=== PATIENT | female | born 1935 | race Asian ===

== ENCOUNTER → 2016-07-09 | Outpatient (CLI) | payer OTHER | LOC: CIMAGING 16:27 | PROVIDERS: ATTEND Family Medicine | DX: R06.00 Dyspnea, unspecified (principal); I51.7 Cardiomegaly | CPT/HCPCS: 71020-PO ==

== ENCOUNTER → 2016-07-31 | Outpatient (CLI) | payer OTHER | LOC: FCPNEURO 22:49 | PROVIDERS: ATTEND Internal Medicine Sleep Medicine | DX: G47.33 Obstructive sleep apnea (adult) (pediatric) (principal); G47.61 Periodic limb movement disorder ==

== ENCOUNTER → 2016-08-21 | Outpatient (CLI) | payer OTHER | LOC: CIMAGING 07:16 | PROVIDERS: ATTEND Family Medicine | DX: R14.0 Abdominal distension (gaseous) (principal); N28.1 Cyst of kidney, acquired; E04.9 Nontoxic goiter, unspecified; I70.0 Atherosclerosis of aorta; E78.5 Hyperlipidemia, unspecified | CPT/HCPCS: 76700-PO; 76856-PO; 93880-PO ==

== ENCOUNTER 2016-12-27 18:53 | Emergency (ER) | payer OTHER ==
--- NOTE | 2016-12-27 18:53 | EDPHY ---
H & P HPI/ROS: CHIEF COMPLAINT: "Shaking episode" HISTORY OF PRESENT ILLNESS: This patient is an 81 year old female with Alzheimer's dementia arriving via EMS from [facility] following a witnessed episode of shaking reportedly lasting from about 18:00 to 18:30, ending 25 minutes prior to arrival. This episode was witnessed by her dining partners, who reported to EMS that the patient never lost consciousness during this time. Her dining partners alerted staff, who activated EMS. Per EMS report, the patient states she has had similar episodes before, but they are concerned she is not a reliable historian. Vitals were stable in transport. Patient was hypertensive at 182/88. BGL 138. IV established. [place] stroke scale conducted by EMS was negative. The patient's daughter is en route here, and should be able to provide further information regarding the patient's condition. HPI obtained primarily through EMS report. REVIEW OF SYSTEMS: Patient unable to reliably provide full ROS. Her daughter tells me that she has not been ill recently. Past medical history: 1. Essential thrombocytosis (Followed by Dr. English) 2. Restless Leg Syndrome 3. Hypertension 4. Coronary atherosclerosis 5. Hyperthyroidism 6. Depression and Anxiety 7. Hearing loss - wears hearing aide in left ear. Medications: HCTZ, Hydroxyurea, Escitalopram, Brimonidine, Folic acid, ASA 81mg , Ubiquinol, Ropinirole Past surgical history: Noncontributory Family history: Noncontributory Social history: Lives at [facility]. Son and daughter at bedside. PCP Dr. Guy. Has never used tobacco products. General Appearance: Alert. Vital signs reviewed. BP 156/76 Eyes: Pupils equal and round, no conjunctival injection, no discharge. Anicteric. ENT, Mouth: Mucous membranes are moist, no oropharyngeal erythema or edema. Neck: No lymphadenopathy, supple. Respiratory: Tachypneic. Lungs are clear to auscultation; no wheezes, rales, or rhonchi. Cardiovascular: Regular rate and rhythm; no murmur, rub, or gallop. Gastrointestinal: Abdomen is soft and nontender, no masses or organomegaly, bowel sounds normal. Skin: Warm and dry, no rashes on exposed skin, normal color. Back: Nontender to palpation over the thoracolumbar spine. No CVAT. Extremities: No lower extremity edema, no calf tenderness or swelling. Neurological: Alert and oriented. Moving all four extremities easily and equally. PERRL. EOMI. Facial expressions symmetric. Tongue midline. 4+/5 motor strength throughout. Sensation intact to light touch. No tremor, fasciculations, abnormal motor activity noted. Psychiatric: Normal affect. Constitutional: Initial Vital Signs Temperature (C) 37 C 12/27/16 18:53 Heart Rate 86 12/27/16 18:53 Respiratory Rate 18 12/27/16 18:53 Blood Pressure 156/76 H 12/27/16 18:53 O2 Sat (%) 94 12/27/16 18:53 O2 Delivery Mode Room Air Allergies/Adverse Reactions: alendronate sodium [From Fosamax] Allergy (Intermediate, Verified 11/27/15 09:06 ) bupropion HCl [From Wellbutrin] Allergy (Intermediate, Verified 11/27/15 09:06) duloxetine HCl [From Cymbalta] Allergy (Intermediate, Verified 11/27/15 09:06) hydrocodone [Hydrocodone] Allergy (Intermediate, Verified 11/27/15 09:06) alcohol Allergy (Verified 11/27/15 09:06) ethanolamine [Ethanolamine] Allergy (Verified 11/27/15 09:06) Home Medications: Medication Instructions Recorded Aspirin 12/27/16 Brimonidine 0.15% 12/27/16 Escitalopram Oxalate 12/27/16 FOLIC ACID 12/27/16 Hydrochlorothiazide 12/27/16 Hydroxyurea 12/27/16 Latanoprost 0.005% 12/27/16 Ropinirole HCl 12/27/16 Medical Decision Making - Diagnostics EKG Interpretation: The 12 lead EKG was interpreted by myself. See hard copy and/or "tracemaster" electronic copy for interpretation. Sinus rhythm, rate 87. Imaging: I viewed and interpreted images myself ED Course/Re-evaluation: 18:54 Met EMS crews on arrival, received report at bedside. 19:13 The patient's family has arrived, her daughter and son. The patient's son states the nurse apprenticeship consultant says she started trembling and complained of malaise. The patient states she was having lunch in the dining room, but is unable to state how she was feeling at that time. She remember her legs were shaking. She denies any associated pain. Right now she states she feels fine. She appears worried. She endorses some anxiety earlier today. She denies recent falls or other trauma, or any recent illness. She denies chest pain. She had a sensation of difficulty breathing earlier today, but this is now resolved. She denies nausea, abdominal pain, diarrhea, constipation, urinary complaints, or other associated symptoms. The patient is currently tachypneic. Her blood pressure is elevated at 175/68. The patient feels warm to the touch but is afebrile at 37.2 degrees. Physical exam is otherwise unremarkable. Her daughter at bedside states her hypertension is generally well controlled, with systolic BP around 115. Plan for labs including CBC, BMP, UA. Plan for EKG. EKG shows sinus rhythm. Labs unremarkable. No evidence of systemic infection or acute electrolyte imbalance 20:03 Reassessed patient. She states she is feeling much better. Her most recent medication is for her thrombocytopenia, Hydroxyurea. I do not suspect this would be causing her tachypnea. She denies any chest pain. Discussed laboratory results. Discussed the possibility of pulmonary embolism. The patient would like to avoid a CT scan if possible. Plan for chest x-ray and d- dimer. Given her thrombocytosis, I am not sure whether her baseline d-dimer level is within normal limits. She is not anticoagulated, and her son and daughter at bedside state she had done poorly with blood thinners in the past. It is not clear to me exactly what happened--doesn't sound like a focal motor seizure, but this is a possibility. This was not a grand mal seizure based on the description provided to me. She has not had a tremor while in the ED and has no history of benign tremor. 21:30 Chest x-ray unremarkable, D-dimer negative, platelets WNL. WBC 9.11 with 92 % neutrophils (she usually has elevated neutrophils, but this is higher than previous). UA shows trace LE and WBCs--however, she has no urinary symptoms, no fever. I am not treating for UTI at this point and do not feel that this UA warrants treatment. I do not think that her presentation (shaking) was a chill. Of course, I was not present and the description of the event is thirdhand and vague. Discussed results with patient and family. She continues to feel better, and is comfortable being discharged back to her assisted living facility. Her family is comfortable with this as well. She will follow up with her primary care physician this week for continued evaluation. She is aware that although I did not find any obvious cause of her episode, I did not see evidence of any life-threatening conditions at this time. Return precautions discussed. She and her family are comfortable with this plan. - Data Points Laboratory Results: Laboratory Results 12/27/16 19:00 12/27/16 19:00 Departure - Departure Disposition: Home, Routine, Self-Care Clinical Impression: Tachypnea Condition: Good Instructions: Hyperventilation (ED) Additional Instructions: 1. Follow up with Dr. Guy in the next 2-3 days. Call tomorrow for an appointment. 2. We do not know what caused your episode at mealtime today, but did not find anything dangerous or life-threatening on our evaluation this evening. 3. Return to the emergency department if you develop chest pain, shortness of breath, dizziness, weakness, or fainting or other worsening of condition. Referrals: Prema Guy [Primary Care Provider] - As per Instructions Report Scribed for: Rosie Ackerman Report Scribed by: Alesia Sepulveda Date of Report: 12/27/16 Time of Report: 19:03 Physician Review and Approval Statement: 12/27/16 18:53 Portions of this note were transcribed by the special forces medical sergeant. I, Dr. Rosie Ackerman, personally performed the history, physical exam, and medical decision- making; and confirmed the accuracy of the information in the transcribed note.
[2016-12-27 19:04] LABS: % IMMATURE GRANULYOCYTES 0.2 % (0.0-1.1); ABSOLUTE IMMATURE GRANULOCYTES 0.02 10^3/uL (0.00-0.10); ADD DIFF? NO; ADD MORPH? NO; ADD SCAN? NO; ATYPICAL LYMPHOCYTE FLAG 0 (0-99); FRAGMENT RBC FLAG 0 (0-99); HEMATOCRIT 43.5 % (38.0-47.0); HEMOGLOBIN 14.3 g/dL (12.6-16.3); LEFT SHIFT FLG 20 (0-99); LIPEMIA HEMOLYSIS FLAG 80 (0-99); MEAN CELL HEMOGLOBIN 31.6 pg (27.9-34.1); MEAN CELL HEMOGLOBIN CONCENTR. 32.9 g/dL (32.4-36.7); MEAN CELL VOLUME 96.2 fL (81.5-99.8); PLATELET CLUMPS FLAG 0 (0-99); PLATELET COUNT 224 10^3/uL (150-400); RED BLOOD CELL COUNT 4.52 10^6/uL (4.18-5.33); RED CELL DISTRIBUTION WIDTH 18.8 % (11.5-15.2)
[2016-12-27 19:07] VITALS: TEMP 98.6
[2016-12-27 19:14] LABS: ANION GAP 11 mEq/L (8-16); CALCIUM 9.4 mg/dL (8.5-10.4); CARBON DIOXIDE 28 mEq/l (22-31); CHLORIDE 97 mEq/L (97-110); CREATININE 0.8 mg/dL (0.6-1.0); GLOMERULAR FILTRATION RATE > 60; GLUCOSE 125 mg/dL (70-100); POTASSIUM 3.6 mEq/L (3.5-5.2); SODIUM 136 mEq/L (134-144)
--- NOTE | 2016-12-27 19:27 | CPEKG ---
Heart Rate: 87 RR Interval: 690 P-R Interval: 148 QRSD Interval: 80 QT Interval: 376 QTC Interval: 453 P Vinton: -5 QRS [place]inton: 34 T Wave Vinton: 18 EKG Severity - NORMAL ECG - EKG Impression: SINUS RHYTHM Electronically Signed By: Rosie Ackerman 28-Dec-2016 00:01:57
[2016-12-27 20:22] LABS: COLOR PALE YELLOW; LEUKOCYTE ESTERASE,URINE TRACE (NEGATIVE); NITRITE,URINE NEGATIVE (NEGATIVE)
[2016-12-27 20:24] LABS: WBC,URINE 15-25 /hpf (0-3)
[2016-12-27 22:15] VITALS: BP 176/68; PULSE 81; RESP 20; O2SAT 94
== END 2016-12-27 22:16 | disposition home or self-care (01) ==
LOC: EDUNIT#
DX: R06.82 Tachypnea, not elsewhere classified (principal); I10 Essential (primary) hypertension; I25.10 Atherosclerotic heart disease of native coronary artery without angina pectoris; Z79.82 Long term (current) use of aspirin

== ENCOUNTER 2017-03-27 11:25 | Inpatient (IN) | payer OTHER ==
--- NOTE | 2017-03-27 12:10 | CPEKG ---
Heart Rate: 78 RR Interval: 769 P-R Interval: 148 QRSD Interval: 78 QT Interval: 420 QTC Interval: 479 P Questa: -11 QRS [place]esta: 52 T Wave [place]: 26 EKG Severity - NORMAL ECG - EKG Impression: SINUS RHYTHM Electronically Signed By: Adolfo Loomis 29-Mar-2017 21:36:14
[2017-03-27 12:24] LABS: % IMMATURE GRANULYOCYTES 0.3 % (0.0-1.1); ABSOLUTE IMMATURE GRANULOCYTES 0.02 10^3/uL (0.00-0.10); ADD DIFF? NO; ADD MORPH? NO; ADD SCAN? NO; ATYPICAL LYMPHOCYTE FLAG 0 (0-99); FRAGMENT RBC FLAG 0 (0-99); HEMATOCRIT 36.9 % (38.0-47.0); HEMOGLOBIN 12.6 g/dL (12.6-16.3); LEFT SHIFT FLG 0 (0-99); LIPEMIA HEMOLYSIS FLAG 90 (0-99); MEAN CELL HEMOGLOBIN CONCENTR. 34.1 g/dL (32.4-36.7); MEAN CELL VOLUME 108.2 fL (81.5-99.8); PLATELET CLUMPS FLAG 0 (0-99); PLATELET COUNT 183 10^3/uL (150-400); RED BLOOD CELL COUNT 3.41 10^6/uL (4.18-5.33); RED CELL DISTRIBUTION WIDTH 13.6 % (11.5-15.2)
[2017-03-27 12:37] LABS: INR 1.01 (0.83-1.16); PROTIME(PATIENT) 13.2 SEC (12.0-15.0)
--- NOTE | 2017-03-27 12:38 | EDPHY ---
H & P Stated Complaint: Fell at home. Altered Mental Status Time Seen by Provider: 03/27/17 11:30 HPI/ROS: CHIEF COMPLAINT: Multiple falls HISTORY OF PRESENT ILLNESS: This is an 81-year-old female with history of Alzheimer's disease as well as coronary artery disease status post 2 stents. She presents today with her family. Patient has a history of falling 6 days ago when getting out of bed in the morning. Patient described as a mechanical fall. She fell this morning, which she reports this tripping on a rug. Patient denies loss of consciousness during either fall. On Wednesday, she fell to her right side and struck her right jaw where she has ecchymosis as well as her right knee. Today she struck her right elbow and is reporting pain in the right elbow. Patient denies a current headache, neck pain, chest pain or shortness of breath. She denies a sense palpitations, lightheadedness or dizziness. She denies nausea, vomiting, diarrhea. She denies recent cold or cough symptoms. No UTI symptoms. She does note that she has a bruise on her right knee her follow Wednesday as well as swelling and pain on the left knee from her fall today. Daughter reports that she seems somewhat more confused since her fall on Wednesday. Patient does take an aspirin daily but is not on no other anticoagulants. No change in her medications with the exception of a decrease in the hydroxy urea which she takes for essential thrombocytosis. No fever, chills, chest pain, shortness of breath, palpitations, vomiting, diarrhea, urinary complaints, headache, lightheadedness. REVIEW OF SYSTEMS: Aside from elements discussed in the HPI, a comprehensive 10-point review of systems was reviewed and is negative. PAST MEDICAL HISTORY: Alzheimer's, coronary artery disease. Denies a history of stroke. SOCIAL HISTORY: Lives at the [facility] in independent living. Here with her daughter. VITAL SIGNS Reviewed by me. GENERAL: Pleasant, elderly female. Alert, appropriate, able answer questions appropriately. Well-developed, well-nourished, resting comfortably in no respiratory distress. HEENT: Atraumatic. Patient does have bruising under the angle of her jaw on the right. No malocclusion. No dental pain. Eyes: No icterus, no injection. PERRL, EOMI. Mouth: moist mucous membranes. No erythema or lesions. Neck: supple with no adenopathy. No tenderness to palpation. LUNGS: Clear to auscultation bilaterally, no wheezes, rhonchi or rales. CARDIAC: Regular rate and rhythm, no rubs, murmurs or gallops. ABDOMEN: Soft, nontender, nondistended, bowel sounds normal. BACK: No CVA tenderness. No midline spinal tenderness. EXTREMITIES: Ecchymosis present over the right elbow. Full range of motion at the elbow, no deformity. Abrasion over the right knee which has been bandaged. Full range of motion at the knee. Ecchymosis, swelling, and abrasion over the left knee. Full range of motion with no obvious deformities. NEURO: Alert and oriented, cranial nerves 2-12 are intact. Motor strength and sensation intact throughout. [id number]-xb-[id number] and [id number]-jh-[id number] is normal on the right, moderate intention tremor and difficulty performing the tasks on the left side. SKIN: Warm and dry, no rash. PSYCHIATRIC: Normal mentation, no agitation. - Personal History Current Tetanus/Diphtheria Vaccine: Yes Current Tetanus Diphtheria and Acellular Pertussis (TDAP): Yes - Medical/Surgical History Hx Asthma: No Hx Chronic Respiratory Disease: No Hx Diabetes: No Hx Cardiac Disease: Yes Hx Renal Disease: No Hx Cirrhosis: No Hx Alcoholism: No Hx HIV/AIDS: No Hx Splenectomy or Spleen Trauma: No Other PMH: Alzheimers, HTN, Thrombocytopenia, vascular dementia, UTI - Social History Smoking Status: Never smoked Constitutional: Initial Vital Signs Temperature (C) 37.0 C 03/27/17 11:51 Heart Rate 88 03/27/17 11:51 Respiratory Rate 20 03/27/17 11:51 Blood Pressure 166/83 H 03/27/17 11:51 O2 Sat (%) 93 03/27/17 11:51 O2 Delivery Mode Room Air Allergies/Adverse Reactions: alendronate sodium [From Fosamax] Allergy (Intermediate, Verified 03/27/17 11:49 ) bupropion HCl [From Wellbutrin] Allergy (Intermediate, Verified 03/27/17 11:49) duloxetine HCl [From Cymbalta] Allergy (Intermediate, Verified 03/27/17 11:49) hydrocodone [Hydrocodone] Allergy (Intermediate, Verified 03/27/17 11:49) alcohol Allergy (Verified 03/27/17 11:49) ethanolamine [Ethanolamine] Allergy (Verified 03/27/17 11:49) Home Medications: Medication Instructions Recorded Aspirin 12/27/16 Brimonidine 0.15% 12/27/16 Escitalopram Oxalate 12/27/16 FOLIC ACID 12/27/16 Hydrochlorothiazide 12/27/16 Hydroxyurea 12/27/16 Latanoprost 0.005% 12/27/16 Ropinirole HCl 12/27/16 Medical Decision Making - Diagnostics EKG Interpretation: 12-LEAD EKG: Please see the full report in [facility]. My interpretation: Sinus rhythm, minimal ST elevation anterior. ED Course/Re-evaluation: 81-year-old female with history of Alzheimer's who now presents with 2 falls recently. On exam she has evidence of trauma to her jaw and her daughter reports that she is seeming to be somewhat more confused since the fall on Wednesday. CT scan of the head and cervical spine were ordered to evaluate for intracranial trauma and cervical spine trauma in the setting of a jaw injury. Laboratory evaluation including troponin, EKG, and urinalysis were ordered. Patient's EKG is normal sinus rhythm. Laboratory evaluation including a CBC, chemistries, urinalysis remarkable only for 1+ bacteria and 1+ leukocyte Estrace in the patient's urine. Troponin however is elevated at 0.070, which is indeterminate. Patient takes 81 mg of aspirin daily, an additional 273 mg was administered. I discussed the results of the lab with the patient and daughter. I advised them that my recommendation is patient be admitted to the hospital for further monitoring of her elevated troponin. Repeat EKG was also ordered. 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 Patient's course was discussed with the hospitalist service, Liliane Phelps. Patient will be admitted to the PCU. Differential Diagnosis: Differential diagnoses for the patient's symptom complex was considered including but not limited to electrolyte abnormalities, arrhythmia, acute coronary syndrome, mechanical fall, ecchymosis, laceration, open laceration, fracture, urinary tract infection. Consult/Admit Bed Type: Dr Johnson, PCU - Data Points Laboratory Results: Laboratory Results 03/27/17 12:16 03/27/17 12:16 03/27/17 03/27/17 03/27/17 12:38 12:16 12:16 WBC 6.14 10^3/uL 10^3/uL (3.80-9.50) RBC 3.41 10^6/uL L 10^6/uL (4.18-5.33) Hgb 12.6 g/dL g/dL (12.6-16.3) Hct 36.9 % L % (38.0-47.0) MCV 108.2 fL H fL (81.5-99.8) MCH 37.0 pg H pg (27.9-34.1) MCHC 34.1 g/dL g/dL (32.4-36.7) RDW 13.6 % % (11.5-15.2) Plt Count 183 10^3/uL 10^3/uL (150-400) MPV 9.0 fL fL (8.7-11.7) Neut % (Auto) 91.2 % H % (39.3-74.2) Lymph % (Auto) 3.7 % L % (15.0-45.0) [place] % (Auto) 4.1 % L % (4.5-13.0) Eos % (Auto) 0.5 % L % (0.6-7.6) Baso % (Auto) 0.2 % L % (0.3-1.7) Nucleat RBC Rel Count 0.0 % % (0.0-0.2) Absolute Neuts (auto) 5.60 10^3/uL 10^3/uL (1.70-6.50) Absolute Lymphs (auto) 0.23 10^3/uL L 10^3/uL (1.00-3.00) Absolute Monos (auto) 0.25 10^3/uL L 10^3/uL (0.30-0.80) Absolute Eos (auto) 0.03 10^3/uL 10^3/uL (0.03-0.40) Absolute Basos (auto) 0.01 10^3/uL L 10^3/uL (0.02-0.10) Absolute Nucleated RBC 0.00 10^3/uL 10^3/uL (0-0.01) Immature Gran % 0.3 % % (0.0-1.1) Immature Gran # 0.02 10^3/uL 10^3/uL (0.00-0.10) PT 13.2 SEC SEC (12.0-15.0) INR 1.01 (0.83-1.16) Sodium Potassium Chloride Carbon Dioxide Anion Gap BUN Creatinine Estimated GFR Glucose Calcium Total Bilirubin Conjugated Bilirubin Unconjugated Bilirubin AST ALT Alkaline Phosphatase Troponin I Total Protein Albumin Lipase Urine Color YELLOW Urine Appearance CLEAR Urine pH 7.5 (5.0-7.5) Ur Specific [place] 1.010 (1.002-1.030) Urine Protein NEGATIVE (NEGATIVE) Urine Ketones NEGATIVE (NEGATIVE) Urine Blood NEGATIVE (NEGATIVE) Urine Nitrate NEGATIVE (NEGATIVE) Urine Bilirubin NEGATIVE (NEGATIVE) Urine Urobilinogen 0.2 EU EU (0.2-1.0) Ur Leukocyte Esterase TRACE H (NEGATIVE) Urine RBC 1-3 /hpf /hpf (0-3) Urine WBC 1-3 /hpf /hpf (0-3) Ur Epithelial Cells 1+ /lpf /lpf (NONE-1+) Amorphous Sediment 1+ /hpf /hpf (NONE-1+) Urine Bacteria 1+ /hpf H /hpf (NONE SEEN) Granular Casts 0-1 /lpf /lpf (0-1) Urine Glucose NEGATIVE (NEGATIVE) 03/27/17 12:16 WBC RBC Hgb Hct MCV MCH MCHC RDW Plt Count MPV Neut % (Auto) Lymph % (Auto) [place] % (Auto) Eos % (Auto) Baso % (Auto) Nucleat RBC Rel Count Absolute Neuts (auto) Absolute Lymphs (auto) Absolute Monos (auto) Absolute Eos (auto) Absolute Basos (auto) Absolute Nucleated RBC Immature Gran % Immature Gran # PT INR Sodium 139 mEq/L mEq/L (134-144) Potassium 3.6 mEq/L mEq/L (3.5-5.2) Chloride 99 mEq/L mEq/L (97-110) Carbon Dioxide 27 mEq/l mEq/l (22-31) Anion Gap 13 mEq/L mEq/L (8-16) BUN 17 mg/dL mg/dL (7-23) Creatinine 0.7 mg/dL mg/dL (0.6-1.0) Estimated GFR > 60 Glucose 105 mg/dL H mg/dL (70-100) Calcium 9.0 mg/dL mg/dL (8.5-10.4) Total Bilirubin 0.7 mg/dL mg/dL (0.1-1.4) Conjugated Bilirubin 0.0 mg/dL mg/dL (0.0-0.5) Unconjugated Bilirubin 0.7 mg/dL mg/dL (0.0-1.1) AST 25 IU/L IU/L (14-46) ALT 31 IU/L IU/L (9-52) Alkaline Phosphatase 84 IU/L IU/L (38-126) Troponin I 0.070 ng/mL H ng/mL (0.000-0.034) Total Protein 6.6 g/dL g/dL (6.3-8.2) Albumin 3.8 g/dL g/dL (3.5-5.0) Lipase 234 IU/L IU/L (23-300) Urine Color Urine Appearance Urine pH Ur Specific [place] Urine Protein Urine Ketones Urine Blood Urine Nitrate Urine Bilirubin Urine Urobilinogen Ur Leukocyte Esterase Urine RBC Urine WBC Ur Epithelial Cells Amorphous Sediment Urine Bacteria Granular Casts Urine Glucose Medications Given: Discontinued Medications Aspirin (Aspirin) 324 mg PO EDNOW ONE Stop: 03/27/17 12:57 Last Admin: 03/27/17 13:00 Dose: 324 mg Departure - Departure Disposition: [facility] Inpatient Acute Clinical Impression: Elevated troponin, Bilateral knee contusion, Frequent falls Condition: Fair Referrals: Prema Guy [Primary Care Provider] - As per Instructions
[2017-03-27 12:41] LABS: ALANINE AMINOTRANSFERASE 31 IU/L (9-52); ALBUMIN 3.8 g/dL (3.5-5.0); ALKALINE PHOSPHATASE 84 IU/L (38-126); ANION GAP 13 mEq/L (8-16); ASPARTATE AMINOTRANSFERASE 25 IU/L (14-46); BILIRUBIN,TOTAL 0.7 mg/dL (0.1-1.4); BILIRUBIN-UNCONJUGATED 0.7 mg/dL (0.0-1.1); CARBON DIOXIDE 27 mEq/l (22-31); CHLORIDE 99 mEq/L (97-110); CREATININE 0.7 mg/dL (0.6-1.0); GLOMERULAR FILTRATION RATE > 60; GLUCOSE 105 mg/dL (70-100); POTASSIUM 3.6 mEq/L (3.5-5.2); SODIUM 139 mEq/L (134-144); TOTAL PROTEIN 6.6 g/dL (6.3-8.2)
[2017-03-27 12:44] LABS: COLOR YELLOW; LEUKOCYTE ESTERASE,URINE TRACE (NEGATIVE); NITRITE,URINE NEGATIVE (NEGATIVE); PH,URINE 7.5 (5.0-7.5)
[2017-03-27] MEDS ORDERED: ASPIRIN 81 MG CHEWABLE TAB PO ONE (12:56)
[2017-03-27 13:06] LABS: AMORPHOUS 1+ /hpf (NONE-1+); BACTERIA 1+ /hpf (NONE SEEN); GRANULAR CASTS 0-1 /lpf (0-1)
[2017-03-27] MEDS ORDERED: LORazepam 2 MG/ML INJ IVP ONE (14:07)
--- NOTE | 2017-03-27 14:09 | CPEKG ---
Heart Rate: 82 RR Interval: 732 P-R Interval: 148 QRSD Interval: 84 QT Interval: 420 QTC Interval: 491 P Emmons: 49 QRS Emmons: 41 T Wave Emmons: -76 EKG Severity - ABNORMAL ECG - EKG Impression: SINUS RHYTHM EKG Impression: PROBABLE LEFT ATRIAL ABNORMALITY EKG Impression: NONSPECIFIC T ABNORMALITIES, INFERIOR LEADS EKG Impression: BORDERLINE PROLONGED QT INTERVAL Electronically Signed By: Adolfo Loomis 29-Mar-2017 21:36:07
[2017-03-27] MEDS ORDERED: ACETAMINOPHEN 325 MG TAB PO PRN (16:16)
[2017-03-27] MEDS ORDERED: ONDANSETRON DISINTEGRATING 4 MG TAB PO PRN (16:16)
[2017-03-27] MEDS ORDERED: ONDANSETRON 4 MG/2 ML VIAL IVP PRN (16:16)
[2017-03-27] MEDS ORDERED: hydrALAZINE 10 MG TAB PO ONE (16:28)
[2017-03-27] MEDS ORDERED: NS 1,000 ML IV SCH (16:30)
--- NOTE | 2017-03-27 17:28 | GHP ---
[f rep st] HISTORY AND PHYSICAL DATE OF ADMISSION: 03/27/2017 CHIEF COMPLAINT: Fall. HISTORY OF PRESENT ILLNESS: This is an 81-year-old female with Alzheimer's who was brought into [facility] by her family for falls and confusion. She lives in assisted living at the [facility]. She apparently had a fall last Wednesday, as well as yesterday. When I ask her about this, she does not seem to recall the fall specifically, although she tells me that she falls just about every day. I spoke with her daughter on the phone to confirm some of the details. She did tell me that she fell on Wednesday. This was unwitnessed. She has been complaining of elbow and knee pain since then. She also fell yesterd ay. She was checked out by the nurse last night and thought to be okay. She denies any other pain o ther than knee pain and elbow pain. She specifically denies chest pain. She tells me that she has h ad a slight cough recently. Her daughter is not aware of her having any fevers recently. The patien t is also unaware of this. She denies any dysuria, nausea, vomiting, abdominal pain, new rash. She also denies any extremity weakness. PAST MEDICAL/SURGICAL HISTORY: 1. Coronary artery disease, status post stents. 2. Alzheimer's disease. 3. 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 4. Hypertension. 5. Restless legs syndrome. MEDICATIONS: Please see medication reconciliation. ALLERGIES: Fosamax, Wellbutrin, Cymbalta, hydrocodone, alcohol and ethanolamine. SOCIAL HISTORY: She lives at the [facility]. FAMILY HISTORY: Reviewed and noncontributory. REVIEW OF SYSTEMS: A 10-point review of systems is conducted and is negative except per HPI. CODE STATUS: She would like to be full code, full tube. Her daughter would be her decision maker. PHYSICAL EXAM: VITAL SIGNS: Blood pressure is 187/86, heart rate 94, respiration rate 16, satting a t 88% on room air, temperature is 38.3. GENERAL: The patient is a pleasant female who is resting co mfortably in bed, in no acute distress. HEENT: Normocephalic, atraumatic. CARDIOVASCULAR: Regular rate and rhythm. There is a very faint 1/6 systolic murmur. PULMONARY: Breathing comfortably. Nancy ngs clear bilaterally. ABDOMEN: Soft, nontender, nondistended. She has normal bowel sounds. There is no guarding or rebound. SKIN: No rash. : No [place]. EXTREMITIES: No joint effusions. She is moving all of her joints comfortably. NEUROLOGIC: Alert and oriented times x1 to x2. Cranial ne rves 2-12 are intact. Motor is intact in the upper and lower extremities. Sensation to light touch is intact in the upper and lower extremities. PSYCHIATRIC: Normal mood and affect. LABS: White count is 6.1, platelets are 183, MCV is 108, INR is 1.01. Basic metabolic panel is norm al. Troponin 0.070. Urinalysis shows trace leuk esterase and 1+ bacteria. DATA: 1. EKGs, which I personally viewed and interpreted, shows sinus rhythm. She has mild T-wave inversi ons in 2, 3 and F. The first EKG is poor quality. They appear similar in both EKGs. Otherwise, she has normal axis. No ST changes. 2. Knee x-ray shows moderate medial joint space narrowing with nothing acute. 3. C-spine CT shows no posttraumatic abnormality. She does have multilevel degenerative change with moderate to severe neuroforaminal stenosis and moderate to severe spinal canal narrowing. 4. Head CT without contrast shows diffuse atrophy, frontal parenchymal calcification, but nothing ac ethan. IMPRESSION AND PLAN: An 81-year-old female with falls, fever, Alzheimer's. 1. Falls: Unclear if these are mechanical, though I suspect they may be. We will have her work wit h PT and OT. We will workup for secondary causes including infectious and cardiac. 2. Elevated troponin, history of coronary artery disease without chest pain: She is very hypertensi ve, elevated troponin may be due to this. Regardless, we will trend her troponins to assure that she does not have a sharp rise. Her EKGs and lack of chest pain are reassuring. We will monitor her on telemetry as well. Further workup depends on her clinical course. 3. Fever: Unclear if this is infective or otherwise. Urinalysis shows mild leuk esterase, though i s not very convincing. She complains of a cough. I will check a chest x-ray. I will draw blood cul tures, though I do not see any clear source at this point. Also consider that this may be related to hydroxyurea or essential thrombocytosis. 4. Hypertension, uncontrolled: This may contribute slightly to her mental status. We will give her a low dose of hydralazine oral right now. I am not sure if she took her medicines this morning. We will continue those after they are reconciled by pharmacy. Anxiety may be playing a role in this as well. 5. Alzheimer's: She is living at assisted living currently. Her daughter is very involved. 6. Restless legs syndrome: Ropinirole. 7. Essential thrombocytosis: Hydroxyurea. 8. Venous thromboembolism risk is moderate to high. I will start her on prophylactic dose Lovenox. /[id number]/MODL
[2017-03-27] MEDS: LR 1,000 ML IV SCH (17:36)
[2017-03-27 17:52] LABS: LACGHOST ORDER
[2017-03-27] MEDS: HYDROCHLOROTHIAZIDE 12.5 MG CAP PO SCH (18:20)
[2017-03-27] MEDS: BRIMONIDINE 0.15% 5 ML OPHT.BTL EACHEYE SCH (19:58)
[2017-03-27] MEDS: HYPROMELLOSE OPTH EACHEYE SCH (20:47)
[2017-03-27] MEDS: LATANOPROST 0.005% 2.5 ML OPHT DROPS EACHEYE SCH (20:49)
[2017-03-28 03:14] LABS: % IMMATURE GRANULYOCYTES 0.2 % (0.0-1.1); ABSOLUTE IMMATURE GRANULOCYTES 0.01 10^3/uL (0.00-0.10); ADD DIFF? NO; ADD MORPH? NO; ADD SCAN? NO; ATYPICAL LYMPHOCYTE FLAG 0 (0-99); FRAGMENT RBC FLAG 0 (0-99); HEMATOCRIT 34.7 % (38.0-47.0); HEMOGLOBIN 11.9 g/dL (12.6-16.3); LEFT SHIFT FLG 10 (0-99); LIPEMIA HEMOLYSIS FLAG 90 (0-99); MEAN CELL HEMOGLOBIN 38.1 pg (27.9-34.1); MEAN CELL HEMOGLOBIN CONCENTR. 34.3 g/dL (32.4-36.7); MEAN CELL VOLUME 111.2 fL (81.5-99.8); MEAN PLATELET VOLUME 9.4 fL (8.7-11.7); PLATELET CLUMPS FLAG 10 (0-99); PLATELET COUNT 149 10^3/uL (150-400); RED BLOOD CELL COUNT 3.12 10^6/uL (4.18-5.33); RED CELL DISTRIBUTION WIDTH 13.7 % (11.5-15.2)
[2017-03-28 03:27] LABS: ALANINE AMINOTRANSFERASE 25 IU/L (9-52); ALBUMIN 3.4 g/dL (3.5-5.0); ALKALINE PHOSPHATASE 99 IU/L (38-126); ANION GAP 10 mEq/L (8-16); ASPARTATE AMINOTRANSFERASE 29 IU/L (14-46); BILIRUBIN,TOTAL 0.3 mg/dL (0.1-1.4); CALCIUM 8.5 mg/dL (8.5-10.4); CARBON DIOXIDE 25 mEq/l (22-31); CHLORIDE 102 mEq/L (97-110); CREATININE 0.7 mg/dL (0.6-1.0); GLOMERULAR FILTRATION RATE > 60; GLUCOSE 118 mg/dL (70-100); POTASSIUM 3.1 mEq/L (3.5-5.2); SODIUM 137 mEq/L (134-144); TOTAL PROTEIN 5.7 g/dL (6.3-8.2)
[2017-03-28] MEDS: LR 1,000 ML IV SCH (05:59)
[2017-03-28] MEDS ORDERED: POTASSIUM CL 20 MEQ TAB PO ONE ×2 (06:40→09:15)
--- NOTE | 2017-03-28 08:59 | HOSPPROG ---
Hospitalist Progress Note Assessment/Plan: Falls - ?infectious / volume depletion. PT/OT evals today. Will also request speech eval given h/o coughing / choking with drinking fluids. No PNA on CXR. In addition, will check MRI to r/o CVA as daughter describes her drifting off to one side. Fever - send respiratory pathogen panel. UA not convincing for UTI. PCT 0.09, risk for bacterial infection is negligible. CAD s/p stents - chest pain free. EKG non-ischemic. Cont ASA. Not on BB or statin. Check lipid status Thrombocytosis - hydroxyurea Hypertension - adequate control on current regimen Alzheimer's dementia Full code Dispo - change to inpt, will require ongoing evaluation and workup of falls / fever. Subjective: Pt is sleeping, quite somnolent, but awakens easily and answers questions. She is demented, poor memory. Doesn't remember falling. Denies CP , SOB, abdominal pain, N/V/D or cough. Objective: Vital Signs Temp Pulse Resp BP Pulse Ox 36.8 C 86 16 142/73 H 94 03/28/17 03:56 03/28/17 03:56 03/28/17 03:56 03/28/17 03:56 03/28/17 03:56 Laboratory Results 03/28/17 03:10 03/28/17 03:10 03/27/17 03/28/17 03/29/17 05:59 05:59 05:59 Intake Total 1170 1000 Output Total 602 Balance 568 1000 PT 13.2 SEC (12.0-15.0) 03/27/17 12:16 INR 1.01 (0.83-1.16) 03/27/17 12:16 - Physical Exam Constitutional: no apparent distress Eyes: PERRL Ears, Nose, Mouth, Throat: moist mucous membranes Cardiovascular: regular rate and rhythym Respiratory: no respiratory distress, clear to auscultation Gastrointestinal: normoactive bowel sounds, soft, non-tender abdomen Skin: warm Musculoskeletal: full muscle strength Psychiatric: poor memory ICD10 Worksheet Patient Problems: Problems Problem Status Onset Elevated troponin Acute Frequent falls Acute
[2017-03-28] MEDS ORDERED: ASPIRIN EC 81 MG TAB PO SCH (09:00)
--- NOTE | 2017-03-28 09:16 | PDMN ---
Medical Necessity Medical necessity: C/M review: est. > 2 MN LOS for eval and TX of acute fever , falls of questionable infectious / volume depletion etiology requiring planned brain MRI, ST eval, ongoing IV fluids, cardiac monitoring, acute inpt PT /OT, comorbid falls prior to this admission, CAD S/P stents, thrombocytosis, hypertension, Alzheimer's dementia per 03/28/2017 Hospitalist progress note.
[2017-03-28] MEDS: ENOXAPARIN 40 MG/0.4 ML SYR SC SCH (09:32)
[2017-03-28] MEDS: HYDROCHLOROTHIAZIDE 12.5 MG CAP PO SCH (09:33)
[2017-03-28] MEDS: BRIMONIDINE 0.15% 5 ML OPHT.BTL EACHEYE SCH ×2 (09:33→18:00)
[2017-03-28] MEDS: ESCITALOPRAM OXALATE 10 MG TAB PO SCH (09:56)
[2017-03-28 10:06] LABS: CHOLESTEROL 142 mg/dL (140-220); CHOLESTEROL/HDL RATIO 3.84 RATIO (1.00-4.44); HIGH DENSITY LIPOPROTEIN 37 mg/dL (40-85); LDL/HDL RATIO 2.24 RATIO (1.00-3.22); LOW DENSITY LIPOPROTEIN 83 mg/dL (80-100); NON-HIGH DENSITY LIPOPROTEIN 105 mg/dL (90-129); TRIGLYCERIDE 113 mg/dL (35-135); VERY LOW DENSITY LIPOPROTEINS 22 mg/dL (8-25)
[2017-03-28] MEDS ORDERED: Polyvinyl Alcohol [Artificial Tears] EACHEYE SCH (11:00)
[2017-03-28] MEDS ORDERED: TEARS/DEXTRAN 70/HYPROMELLOSE 15 ML OPHT.BTL EACHEYE SCH (11:00)
--- NOTE | 2017-03-28 12:39 | ASMTCMCOM ---
CM Note CM Note Notes: Chart reviewed. Spoke with RN. Patient to MRI r/o CVA. She is from the [facility]. OT recommending SNF, PT and speech pending. CM to follow. Date Signed: 03/28/2017 12:39 PM Electronically Signed By:Alyson Young RN
[2017-03-28] MEDS ORDERED: ASPIRIN EC 81 MG TAB PO ONE (14:51)
[2017-03-28] MEDS ORDERED: LABETALOL HCL 5 MG/ML 20 ML MDV IVP PRN (14:58)
[2017-03-28] MEDS ORDERED: METOPROLOL TARTRATE 25 MG TAB PO SCH (15:00)
--- NOTE | 2017-03-28 15:14 | ASMTCMCOM ---
CM Note CM Note Notes: Per therapies, SNF recommendation. Family wishes to keep patient at home in familiar environment, She is at the [facility] assisted living. Discussed the possibility of private caregivers and Home health to address physical therapy. Family provided with Senior services book and list of [facility] agencies. CM to follow. Date Signed: 03/28/2017 03:14 PM Electronically Signed By:Alyson Young RN
[2017-03-28] MEDS ORDERED: ASPIRIN 81 MG CHEWABLE TAB ONE (16:08)
[2017-03-28] MEDS ORDERED: IOPAMIDOL (ISOVUE 370) 100 ML BTL IV ONE (16:13)
[2017-03-28 19:30] VITALS: RESP 16
[2017-03-28] MEDS: LATANOPROST 0.005% 2.5 ML OPHT DROPS EACHEYE SCH (20:53)
[2017-03-28] MEDS: HYPROMELLOSE OPTH EACHEYE SCH (20:54)
[2017-03-29 04:01] LABS: HEMATOCRIT 32.7 % (38.0-47.0); HEMOGLOBIN 11.6 g/dL (12.6-16.3); MEAN CELL HEMOGLOBIN 38.4 pg (27.9-34.1); MEAN CELL HEMOGLOBIN CONCENTR. 35.5 g/dL (32.4-36.7); MEAN CELL VOLUME 108.3 fL (81.5-99.8); RED BLOOD CELL COUNT 3.02 10^6/uL (4.18-5.33); RED CELL DISTRIBUTION WIDTH 13.6 % (11.5-15.2)
[2017-03-29 04:26] LABS: ANION GAP 9 mEq/L (8-16); CALCIUM 8.4 mg/dL (8.5-10.4); CARBON DIOXIDE 30 mEq/l (22-31); CHLORIDE 100 mEq/L (97-110); CHOLESTEROL 142 mg/dL (140-220); CHOLESTEROL/HDL RATIO 3.94 RATIO (1.00-4.44); CREATININE 0.7 mg/dL (0.6-1.0); GLOMERULAR FILTRATION RATE > 60; GLUCOSE 87 mg/dL (70-100); HIGH DENSITY LIPOPROTEIN 36 mg/dL (40-85); LDL/HDL RATIO 2.22 RATIO (1.00-3.22); LOW DENSITY LIPOPROTEIN 80 mg/dL (80-100); NON-HIGH DENSITY LIPOPROTEIN 106 mg/dL (90-129); POTASSIUM 3.4 mEq/L (3.5-5.2); SODIUM 139 mEq/L (134-144); TRIGLYCERIDE 130 mg/dL (35-135); VERY LOW DENSITY LIPOPROTEINS 26 mg/dL (8-25)
[2017-03-29] MEDS ORDERED: POTASSIUM CL 20 MEQ TAB PO ONE (06:57)
[2017-03-29 07:26] VITALS: PULSE 70; TEMP 98.2; O2SAT 95
[2017-03-29] MEDS ORDERED: ASPIRIN EC 325 MG TAB PO SCH (09:00)
[2017-03-29] MEDS ORDERED: HYDROXYUREA 500 MG CAP PO SCH (09:00)
[2017-03-29] MEDS: HYDROCHLOROTHIAZIDE 12.5 MG CAP PO SCH (09:28)
[2017-03-29] MEDS ORDERED: LISINOPRIL 2.5 MG TAB PO SCH (10:30)
--- NOTE | 2017-03-29 10:35 | PDIAF ---
- Diagnosis Diagnosis: Hypertension, CVA Code Status: Full Code - Medication Management Discharge Medications: Medications to Continue on Transfer Brimonidine 0.15% [Alphagan P 0.15%] 1 drops EACHEYE BID@12/27/16 [Last Taken Unknown] Escitalopram Oxalate [Lexapro] 20 mg PO DAILY 12/27/16 [Last Taken Unknown] Hydrochlorothiazide [HCTZ (*)] 12.5 mg PO DAILY 12/27/16 [Last Taken Unknown] Hydroxyurea [Hydrea 500 mg (*)] 500 mg PO MOTUWETHFR 12/27/16 [Last Taken Unknown] Latanoprost 0.005% [Xalatan 0.005% (*)] 1 drops EACHEYE HS 12/27/16 [Last Taken Unknown] rOPINIRole HCL [Requip 1mg (*)] 1 tab PO HS 12/27/16 [Last Taken Unknown] Hypromellose [GENTEAL SEVERE] 1 jose EACHEYE DAILY@211403/27/17 [Last Taken Unknown] Polyvinyl Alcohol [Artificial Tears] 1 drop EACHEYE DAILY@11 03/27/17 [Last Taken Unknown] Aspirin EC [Aspirin EC 325 mg (*)] 325 mg PO DAILY #90 tab 03/29/17 [Last Taken Unknown] Lisinopril [Zestril 2.5 mg (*)] 2.5 mg PO DAILY #30 tab 03/29/17 [Last Taken Unknown] Discharge Medications: Refer to the Discharge Home Medication list for PRN reason. PICC Care - Routine: N/A - Orders Services needed: Home Care, Registered Nurse, Certified Manufacturing Automation Engineer, Master Clinical Lab Technologist, Physical Therapy, Occupational Therapy, Speech Language Pathologist Home Care Face to Face: I certify that this patient was under my care and that I had the required [id number] encounter meeting the encounter requirements on the discharge day. My findings support the fact that the patient is homebound as defined in Home Care Face to Face Continued: CMS Chapter 7 Medicare Benefits Manual 30.1.1 , The condition of the patient is such that there exists a normal inability to leave home and consequently, leaving home would require a considerable and taxing effort. Diet Recommendation: no restrictions on diet Additional: Check blood pressure daily. Hold Lisinopril for SBP <110. - Labs/Radiology BMP Date: 04/05/17 (results to Dr. Guy) - Follow Up Care Current Providers and Referrals: Prema Guy [Primary Care Provider] - As per Instructions
[2017-03-29] MEDS: ESCITALOPRAM OXALATE 10 MG TAB PO SCH (11:29)
[2017-03-29] MEDS: BRIMONIDINE 0.15% 5 ML OPHT.BTL EACHEYE SCH (11:31)
--- NOTE | 2017-03-29 11:58 | ECHO ---
[email or web address] [address] [address] Main: [phone] Fax: Transthoracic Echocardiogram Name: KRISS JI MR#: [id number] Study Date: 03/29/2017 Study Time: 11:01 AM Date of : 1935 Age: 81 year(s) Height: 149.9 cm (59 in.) Weight: 48.08 kg (106 lb.) BSA: 1.41 m2 Gender: Female Examination: Echo with Agitated Saline Indication: ischemic stroke with bubble Image Quality: Adequate Contrast: I.V. dose of agitated saline Requested by: Misa Copeland BP: 172 mmHg/61 mmHg Heart Rate: Rhythm: Indication: ischemic stroke with bubble Procedure Staff Reed Worker: Ana Luisa Molina Reading Physician: Ifeanyi Archer Requesting Provider: Conclusions: No pericardial effusion. Ejection fraction 71%. Diastolic dysfunction. No evidence of right to left shunting by bubble injection. Calcification of the mitral valve annulus with mild mitral regurgitation. Mild aortic regurgitation. Measurements: Chambers Valvular Assessment AV/MV Valvular Assessment TV/PV Normal Normal Normal Name Value Range Name Value Range Name Value Range Ao Dennise (MM): 2.7 cm (2.2 cm-3.7 AV Vmax: 1.36 m/s (1 m/s-1.7 PV Vmax: 0.96 m/s (0.6 m/s-0.9 cm) m/s) m/s) IVSd (2D): 0.9 cm (0.6 cm-1.1 AV maxP mmHg ( - ) PV PGmax: 4 mmHg ( - ) cm) LVOT Vmax: 0.83 m/s (0.7 m/s-1.1 LVDd (2D): 3.5 cm (3.9 cm-5.3 m/s) cm) AR (PHT): 535 ms ( - ) LVDs (2D): 2.4 cm (2.1 cm-4 MV E Vmax: 0.83 m/s ( - ) cm) MV A Vmax: 1.17 m/s ( - ) LVPWd (2D): 0.9 cm ( - ) MV E/A: 0.71 ( - ) LVEF (BP): 71 % (>=55 %) RVDd(2D): 2.6 cm (1.9 cm-3.8 cmmm) Continued Measurements: Chambers Valvular Assessment AV/MV Name Value Name Value LADs Lon.2 cm MV DecTime: 250 m/s LA Area: 19.8 cm2 MV E/E' Septal: 18.50 LA Volume: 53 ml MV E/E' Lateral: 12.10 LA Volume Index: 37.6 ml/m2 AR Vmax: 4.11 cm/s RA Area: 11.2 cm2 Patient: KRISS JI Study Date: 03/29/2017 Page 1 of 2 11:01 AM Findings: Left Ventricle: Normal size left ventricle. No LV hypertrophy. Normal global systolic LV function. EF is 71 %. No regional wall motion abnormality. Grade 1 diastolic dysfunction (abnormal relaxation). Right Ventricle: Normal size right ventricle. Normal RV function. Left Atrium: The left atrium is mildly dilated. An agitated saline study was performed and was negative for intracardiac shunting. Right Atrium: The right atrium is normal in size. Mitral Valve: The mitral valve is normal in appearance and function. There is mild thickening of the mitral valve leaflets. Mild mitral valve regurgitation is present. No mitral stenosis is present. Moderate posterior mitral annular calcification. Aortic Valve: The aortic valve is normal in appearance and function. No aortic valve sclerosis is noted. Aortic sclerosis is present. Mild aortic valve regurgitation is present. No aortic valve stenosis is present. Tricuspid Valve: The tricuspid valve is normal in appearance and function. Trivial tricuspid valve regurgitation. Pulmonary artery pressure is not obtained due to inadequate TR jet. Pulmonic Valve: The pulmonic valve is normal in appearance and function. There is no pulmonic regurgitation seen. Aorta: The aorta is normal. Normal size aortic root measuring 2.7 cm. IVC: The IVC is normal sized. Pericardium: No pericardial effusion. (No Signature Object) Patient: KRISS JI Study Date: 03/29/2017 Page 2 of 2 11:01 AM [id number]
[2017-03-29] MEDS: ENOXAPARIN 40 MG/0.4 ML SYR SC SCH (12:12)
[2017-03-29 13:37] VITALS: BP 134/60
--- NOTE | 2017-03-29 14:19 | GCON ---
[f rep st] CONSULTATION NEUROLOGY CONSULT REFERRING PHYSICIAN: Misa Copeland MD CHIEF COMPLAINT: Stroke. HISTORY OF PRESENT ILLNESS: The patient is a very pleasant 81-year-old lady with a longstanding history of hypertension and vascular disease, status post coronary artery stenting. She was on a baby aspirin daily prior to this admission. She has struggled with controlling her blood pressure for some years , according to the patient. She lives in independent living at the [facility] and has been falling for the last few weeks. She primarily states these were due to mechanical falls, such as tripping over a rug, etc. She does have underlying vascular dementia, followed by her primary neurologist, Dr. Beck and attendant balance changes with the white matter disease. She came in due to falls and had a knee x-ray done. In the course of admission, an MRI was done which revealed 2 or 3 very small diffusion-weighted abnormalities suggestive of acute stroke. Angiography of the head and neck did not show any large vessel occlusion. 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 She has had no atrial fibrillation while here on telemetry. She had been on Plavix in the past but had bleeding problems, and she and her family are very cautious about any kind of antithrombotics. REVIEW OF SYSTEMS: 10-point review of systems was done, only pertinent to the HPI. For past medical history, social history, family history, medications, allergies , please see Dr. Beckford's History and Physical. PHYSICAL EXAMINATION: VITAL SIGNS: Blood pressure on admission went above 200 systolics and now is between 140 and 160s typically, heart rate 70s, temperature 36.8. GENERAL: No acute distress. Very pleasant lady. HIGHER MENTAL FUNCTION: She was not sure about the year and thought it was 2018. CRANIAL NERVES: Normal 2 through 7, and 12. MOTOR: She has no focal weakness. No drift. SENSORY: Normal to light touch in all 4 extremities, no sensory extinction. COORDINATION: Accurate with [id number] bilaterally. IMPRESSION: 1. Hypertension. 2. Acute lacunar infarcts. PLAN: Overall, the MRI findings of acute lacunar infarcts may be incidental to her presentation of mechanical falls. She certainly may have had a hypertensive emergency with her recent fall and being brought to the emergency department, causing the acute lacunar infarcts. Not entirely clear. I did speak to the medical power of civil attorney, her daughter, this morning. She was very clear and firm that they would not want the patient on any kind of oral anticoagulation such as warfarin, based on her previous response to Plavix. There is no large vessel occlusion seen on angiography. Going forward, I think being on a full-dose aspirin 325 mg daily, coated, with meals, along with tight blood pressure control would be ideal for vascular prophylaxis. The patient's daughter understands and agrees with plan. 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 They will also think about disposition in terms of her level of care. Finally, I discussed with the primary team regarding her blood pressure medications. If any adjustments are needed, she can follow up with her primary care, Dr. Guy, within the next couple weeks. She will also follow up with her primary neurologist, Dr. Beck. No further recommendations now. She may discharge in the near future. We will continue to follow as needed with this very pleasant patient. Thank you for the consultation. BILLING INFORMATION: 70 total minutes floor time today reviewing all inpatient notes, MRI imaging, and coordination of care, with speaking to family and the primary team. /[id number]/MODL MTDD
--- NOTE | 2017-03-29 17:25 | ASDISCHSUM ---
Discharge Information Plan Status:Home with Home Health Medically Cleared to Leave:03/28/2017 Discharge Date:03/29/2017 03:13 PM D/C Disposition:Home Health Service [facility] D/C Disposition:Home, Routine, Self-Care Projected Discharge Date:03/29/2017 11:00 AM Transportation at D/C:Family Discharge Delay Reason: Follow-Up Date:03/29/2017 11:00 AM Discharge Slot: Final Diagnosis: Placement Information Referral Type:Assisted Living Residence Referral ID:[id number] Provider Name:[facility] Address 1:[address] [place] [address]. Phone Number: Address 2: Fax Number: [facility]:[place] Selection Factors: State:[place] Referral Type:*Home Health Care Services Referral ID:[id number] Provider Name:[facility] Address 1:[address] Address 2: City:[place] Selection Factors: State:[place] Patient Contact Information Contact Name:CATALINA DOWELL Relationship:Daughter Address:[address] City:[place] Alternate Phone: State/Zip Code:[place] [address] Email: Financial Information Financial Class: Primary Plan Desc:MEDICARE INPATIENT Primary Plan Number:[id number] Secondary Plan Desc:[facility] Secondary Plan Number:[id number] Assessment Information [facility] CM Progress Note CM Note CM Note Notes: Chart reviewed. Spoke with RN. Patient to MRI r/o CVA. She is from the [facility]. OT recommending SNF, PT and speech pending. CM to follow. Date Signed: 03/28/2017 12:39 PM Electronically Signed By:Alyson Young RN [facility] CM Progress Note CM Note CM Note Notes: Per therapies, SNF recommendation. Family wishes to keep patient at home in familiar environment, She is at the [facility] assisted living. Discussed the possibility of private caregivers and Home health to address physical therapy. Family provided with Senior services book and list of [facility] agencies. CM to follow. Date Signed: 03/28/2017 03:14 PM Electronically Signed By:Alyson Young RN Case Management Discharge Plan Note Case Management Discharge Discharge Order Complete? Answers: Yes Patient to Obtain Answers: via Family Medications Transportation Arranged Answers: Family/Friends Faxed Final Orders Answers: Yes Agency/Facility Transfer Answers: Yes Report Printed & Faxed to Receiving Agency Family Notified Answers: Yes Notes: in room Discharge Comments Notes: 03/29/2017 Case Management Note Met w/daughter Letty. Letty refusing SNF for mom d/t memory issues and likely increased confusion. Connected Letty with [facility] from [facility] [phone] fax [phone] and faxed d/c documents. [facility] able to take pt pending review of staff technologist. Program hours are from 8-5:45 pm. [facility] provides RN supervision, 10 daily activities, lunch (dinner costs extra) and weekly day trip. Letty to transport pt to program from [facility]. Letty arranged for unskilled care from 9 pm to 9 am overnight through [facility] [phone] at the [facility]. Case Management arranged home PT through [facility] and provided address for [facility] [address] [facility]. Family unhappy with care from [facility]. Spoke with the [facility] RN and faxed d/c orders. [facility] concerned with level of support pt requires. In agreement with the [facility] program and unskilled over night care. [facility] will provide med management, meal remineders, ADL support but no OT/PT. Daughter to transport pt home. Faxed final orders to [facility], [facility] and [facility]. Date Signed: 03/29/2017 12:57 PM Electronically Signed By:Ibeth Calderon RN Intervention Information
--- NOTE | 2017-03-29 21:01 | GDS ---
[f rep st] DISCHARGE SUMMARY DISCHARGE DIAGNOSES: 1. Frequent falls. 2. Acute lacunar infarcts. 3. Coronary artery disease. 4. Thrombocytosis. 5. Hypertension. 6. Alzheimer's dementia. PROCEDURES: 1. Head CT March 27, 2017, showed no acute intracranial findings, but diffuse cerebral atrophy an d chronic microvascular ischemic changes were noted with a benign-appearing left frontal parenchymal calcification. 2. Brain MRI March 28, 2017, showed 3 left restricted diffusion abnormalities of both supra and i nfratentorial, in the left splenium of the corpus callosum, and 2 others in the left occipital lobe, and again extensive microvascular ischemic change, as well as chronic microhemorrhages were seen. 3. CT angiogram head and neck March 28, 2017, showed moderate narrowing of the left posterior cer ebral artery. 4. Cervical spine CT, March 27, showed no acute posttraumatic abnormality, but severe multilevel degenerative change was noted with spinal canal narrowing and moderate to severe neuroforaminal steno sis. 5. Echocardiogram, March 28, 2017, showed an ejection fraction of 71%. Diastolic dysfunction was present. No evidence of yuipb-ge-werh shunting, and mild aortic regurgitation. CONSULTANTS: Dr. Mc Pretty, Neurology. HISTORY: For details, please see the history and physical dated March 27, 2017. In brief, the tobin plunkett is an 81-year-old female with a history of coronary artery disease, hypertension, and Alzheimer 's dementia, who presented to the Emergency Department with falls and confusion. She is admitted to the hospital for further evaluation. HOSPITAL COURSE: The patient was admitted to the cardiac telemetry unit. Infectious workup was nega tive. This is not thought to be an acute cardiac etiology. Given her disequilibrium and frequent fa lls, a brain MRI was performed and showed several small lacunar infarcts. CT angiogram was negative for large vessel occlusion. Neurology consult was obtained. It is felt she likely had a hypertensiv e encephalopathy contributing to her falls, and may have also suffered the lacunar infarcts during th at time. The family has declined any consideration for anticoagulation. So, we will defer a cardiac event monitor to look for atrial fibrillation, as it would not change our management. Her aspirin d ose was increased from 81 mg to 325 mg daily. They did not wish to change to Plavix, as she has bled in the past on Plavix. PT/OT evaluations were performed and recommended SNF rehab. However, the jluis crocker refuses SNF, and they wish to take their mother home to assisted living at the [facility]. [facility] home health resources are ordered including RN, PT, OT, CART DRIVER, and social work, as well as speec h therapy. They have also been given resources for private caregivers in the home, in effort to ensu re safety. With respect to her blood pressure, she is continued on her hydrochlorothiazide. I will start her on a very low dose of lisinopril 2.5 mg daily. She should have close followup with her [facility] physician to have her medications adjusted as indicated by followup blood pressure monitori jai. DISPOSITION: The patient is discharged home in stable condition with [facility]. DISCHARGE MEDICATIONS: Please see [employer] for complete updated outpatient. NEW MEDICATIONS ON DISCHARGE: 1. Aspirin 325 mg p.o. daily #90, no refills. 2. Lisinopril 2.5 mg p.o. daily #30, no refills. She will continue all other outpatient medications as previously prescribed. /[id number]/MODL
== END 2017-03-29 15:13 | disposition home or self-care (01) | DRG 77 ==
LOC: CED 11:25 → CEDHOLD 13:33 → F2W 15:20 → OBSVTOIN 03-28 09:06 → F2W 03-28 15:25
PROVIDERS: ADMIT Internal Medicine; ATTEND Internal Medicine
DX: I67.4 Hypertensive encephalopathy (principal); I63.9 Cerebral infarction, unspecified; I25.10 Atherosclerotic heart disease of native coronary artery without angina pectoris; D47.3 Essential (hemorrhagic) thrombocythemia; I10 Essential (primary) hypertension; G30.9 Alzheimer's disease, unspecified; F02.80 Dementia in other diseases classified elsewhere, unspecified severity, without behavioral disturbance, psychotic disturbance, mood disturbance, and anxiety; G25.81 Restless legs syndrome; R29.6 Repeated falls; W01.0XXA Fall on same level from slipping, tripping and stumbling without subsequent striking against object, initial encounter; Y92.129 Unspecified place in nursing home as the place of occurrence of the external cause; Z95.5 Presence of coronary angioplasty implant and graft
CPT/HCPCS: 70450-PO; 72125-PO; 73564-PO; 80048-PO; 80076-PO; 81003-PO; 81015-PO; 83690-PO; 84484-PO; 85025-PO; 85610-PO; 97116-GP; 97161-GP; 97165-GO; 97535-GO; G0378; G8978-GP-CJ; G8979-GP-CI; G8987-GO-CJ; G8988-GO-CI; J1650; J2060; Q9967

== ENCOUNTER 2018-10-08 10:14 | Observation (INO) | payer OTHER | END 2018-10-09 13:17 | disposition home or self-care (01) | LOC: F2W 14:25 ==